=== PATIENT | female | born 1950 ===

== ENCOUNTER 2024-03-11 09:52 | Day surgery (SDC) | payer OTHER ==
[2024-03-08 13:18] LABS: Absolute Basophils 0.1 K/uL (0-0.5); Absolute Eosinophils 0.1 K/uL (0-0.5); Absolute Lymphocytes (CBC) 2.5 K/uL (0.7-4.9); Absolute Monocytes 0.7 K/uL (0.1-1.3); Absolute Neutrophil 4.9 K/uL (1.8-8.0); Basophils % 0.9 % (0-1.3); Eosinophils % 1.2 % (0-4.4); Hematocrit 40.2 % (36.0-45.0); Hemoglobin 12.8 g/dL (12.0-15.0); Lymphocytes % 30.6 % (15.3-44.8); MCH 28.9 pg (27.0-35.0); MCHC 31.9 g/dL (32.0-36.0); MCV 90.5 fL (80-100); MPV 8.4 fL (7.6-11.3); Neutrophils % 59.3 % (41.7-73.7); Platelets 390 thou/uL (152-406); RBC Red Blood Cell Count 4.44 M/uL (3.86-4.86); Red Cell Distribution Width 15.6 % (12.1-15.2)
[2024-03-08 13:34] LABS: Anion Gap 4.8 mEq/L (5.0-15.0); Potassium 3.8 mEq/L (3.5-5.1)
--- NOTE | 2024-03-10 11:31 | EKG ---
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
[2024-03-11] MEDS: Ringers Lactate 1,000 ML IV ONE (10:20)
[2024-03-11] MEDS ORDERED: propofoL 200 MG/20 ML VIAL IV ONE (13:01)
[2024-03-11] MEDS ORDERED: LIDOCAINE 2% MPF 5 ML VIAL ONE (13:01)
[2024-03-11] MEDS ORDERED: FENTANYL CITR 100 MCG/2 ML ONE (13:01)
[2024-03-11] MEDS ORDERED: ONDANSETRON 4 MG/2 ML VIAL ONE (13:01)
[2024-03-11] MEDS: CEFAZOLIN SODIUM 2 GM/VIAL ONE (13:08)
[2024-03-11] MEDS: LIDOCAINE HCL/EPINEPHRINE 20 ML MDV ONE (13:08)
[2024-03-11] MEDS ORDERED: dexAMETHasone 10 MG/ML VIAL ONE (13:16)
--- NOTE | 2024-03-11 14:07 | P.OP ---
Preoperative diagnosis: Cyst of RIGHT upper, mid, lower back, scalp cyst, right hip skin tag Postoperative diagnosis: Cyst of RIGHT upper, mid, lower back, scalp cyst, right hip skin tag Primary procedure: Excision of Cyst of RIGHT upper, mid, lower back, scalp cyst, right hip ski Anesthesia: GETA + Local Estimated blood loss: <5cc Specimen: Cyst of RIGHT upper, mid, lower back, scalp cyst, right hip skin tag Findings: Cyst of RIGHT upper, mid, lower back, scalp cyst, right hip skin tag Complications: None Transferred to: Recovery Room Condition: Good
[2024-03-11] MEDS: HYDROMORPHONE HCL 1 MG/ML INJ ONE (14:25)
[2024-03-11] MEDS: HYDROCODONE/APAP 7.5/325 MG TAB ONE (15:17)
[2024-03-11 16:02] VITALS: BP 139/70; TEMP 97.3; O2SAT 98
--- NOTE | 2024-03-11 21:11 | OP ---
Date of Procedure: 03/11/2024 Surgeon: Andrew Alcaraz MD, Preoperative Diagnoses: Cysts of the right upper, right mid, and central lower back; and a vertex sc alp cyst; and a left hip skin tag. Postoperative Diagnoses: Cysts of the right upper, right mid, and central lower back; and a vertex s calp cyst; and a left hip skin tag. Procedures Performed: Excision of the above lesions and cysts and skin tags. Anesthesia: General endotracheal plus local 1% lidocaine. Estimated Blood Loss: 5 cc. Specimen: As above. Findings: As above. Complications: None. Disposition: The patient was transferred to recovery room in good condition. Procedure In Detail: After informed consent was obtained, the patient was brought to the operating r oom, prepped in the usual sterile fashion. After adequate anesthesia was achieved, anesthetized area s of the back and scalp as described above with 1% lidocaine with epinephrine. I used 15 blade down through all of these lesions with the exception of the vertex scalp lesion. I took down the skin in an elliptical fashion removing what appeared to be epidermal inclusion cysts in their entirety. All skin incisions were then irrigated copiously with sterile saline and closed after hemostasis achieved with minimal electrocautery, with interrupted 3-0 nylon sutures and sterile dressing applied. I the n turned my attention to the vertex of the scalp skin lesion. Ultimately, I took this off with a fle xible Dermablade and it was sent off for pathologic examination. The area had Dermabond applied afte r hemostasis achieved with minimal electrocautery as well. I then turned my attention to the left hi p skin tag, which was removed with the same said Dermablade and a sterile dressing was placed over th e top. The patient tolerated procedure without incident or complication and transferred to PACU in g ood condition. All counts were correct at the end of the case. JERRY/DILLONL Voice ID: [id number] Report ID: [id number]
== END 2024-03-11 15:53 | disposition home or self-care (01) ==
LOC: OR 09:52
PROVIDERS: ATTEND Surgery
DX: L72.9 Follicular cyst of the skin and subcutaneous tissue, unspecified (principal); L91.8 Other hypertrophic disorders of the skin; D22.4 Melanocytic nevi of scalp and neck
CPT/HCPCS: 93005; 85025; 80048; 36415; 88304; 88305; J2704; J2003; J3010; J1100; J1171; J2405; J7120